=== PATIENT | female | born 1945 | race Two or more races ===

== ENCOUNTER → 2016-04-02 | Outpatient (CLI) | payer OTHER, MEDICAID ==
[~2016-04-02] MED LIST: BENA10TA53; BENA40TA2; IBUP800T24; SIMV-8; SITA50TA14
[2016-04-02 12:39] LABS: Albumin 4.3 g/dL (3.4-5.0); BUN/Creatinine Ratio 15.3; Bilirubin, Total 0.5 mg/dL (0.2-1.0); Calcium 9.5 mg/dL (8.5-10.1); Potassium 3.9 mmol/L (3.5-5.1)
[2016-04-02 13:26] LABS: Basophils # (auto) 0 uL; Basophils % (auto) 0.4 % (0.0-2.0); DEFINITIVE VIEW TRANSMISSION; Eosinophils # (auto) 0.1 uL; Eosinophils % (auto) 1.4 % (0.0-7.0); Hematocrit 42.6 % (36.0-46.0); Hemoglobin 13.4 g/dL (12.2-16.2); Lymphocytes # (auto) 1.7 uL; Lymphocytes % (auto) 24.1 % (10.0-50.0); Mean Corpuscular Hemoglobin 25.6 pg (28.0-32.0); Mean Corpuscular Hgb Conc. 31.4 g/dL (32.0-36.0); Mean Corpuscular Volume 81.7 fL (80.0-100.0); Mean Platelet Volume 9.9 fL (7.4-10.4); Monocytes # (auto) 0.7 uL; Monocytes % (auto) 9.8 % (0.0-12.0); Neutrophils # (auto) 4.6 uL; Neutrophils % (auto) 64.3 % (37.0-80.0); Platelet Count (auto) 330 10^3/uL (140-450); Red Cell Distribution Width 16.4 % (11.6-16.0); White Blood Cell 7.2 10^3/uL (4.4-10.8)
== END | disposition home or self-care (01) ==
LOC: LAB 09:25
PROVIDERS: ATTEND Internal Medicine Cardiovascular Disease
DX: I10 Essential (primary) hypertension (principal); E78.00 Pure hypercholesterolemia, unspecified; K74.1 Hepatic sclerosis; E11.9 Type 2 diabetes mellitus without complications; E03.9 Hypothyroidism, unspecified; D64.9 Anemia, unspecified; E55.9 Vitamin D deficiency, unspecified
CPT/HCPCS: 36415; 80053; 80061; 82306; 83036; 84436; 84443; 85025

== ENCOUNTER → 2016-08-12 | Outpatient (CLI) | payer OTHER, MEDICAID | END | disposition home or self-care (01) | LOC: LAB 10:03 | PROVIDERS: ATTEND Internal Medicine Cardiovascular Disease | DX: E11.9 Type 2 diabetes mellitus without complications (principal) | CPT/HCPCS: 36415; 83036 ==

== ENCOUNTER 2016-10-08 14:36 | Inpatient (IN) | payer OTHER, MEDICAID ==
[~2016-10-08] VITALS: Ht 162.6 cm; Wt 78.1 kg
[~2016-10-08 14:36] MED LIST changes: -BENA40TA2; +BENA40TA7; -IBUP800T24; +IBUP800T24 PO
[2016-10-08 16:05] LABS: Basophils # (auto) 0 uL; Basophils % (auto) 0.3 % (0.0-2.0); CONDITION Y; DEFINITIVE SEE PRINTOUT; Eosinophils # (auto) 0.1 uL; Eosinophils % (auto) 0.8 % (0.0-7.0); Hematocrit 39.9 % (36.0-46.0); Hemoglobin 12.6 g/dL (12.2-16.2); Lymphocytes # (auto) 1.9 uL; Lymphocytes % (auto) 21.4 % (10.0-50.0); Mean Corpuscular Hemoglobin 24.8 pg (28.0-32.0); Mean Corpuscular Hgb Conc. 31.5 g/dL (32.0-36.0); Mean Corpuscular Volume 78.9 fL (80.0-100.0); Mean Platelet Volume 9.5 fL (7.4-10.4); Monocytes # (auto) 0.6 uL; Monocytes % (auto) 6.7 % (0.0-12.0); Neutrophils # (auto) 6.1 uL; Neutrophils % (auto) 70.8 % (37.0-80.0); Platelet Count (auto) 309 10^3/uL (140-450); Red Cell Distribution Width 16.7 % (11.6-16.0); White Blood Cell 8.6 10^3/uL (4.4-10.8)
[2016-10-08 16:29] LABS: Albumin 3.9 g/dL (3.4-5.0); Bilirubin, Total 0.5 mg/dL (0.2-1.0); Calcium 9.1 mg/dL (8.5-10.1); Magnesium 1.7 mg/dL (1.6-2.6); Potassium 4.1 mmol/L (3.5-5.1); Total Protein 7.5 g/dL (6.4-8.2)
[2016-10-09 05:11] LABS: Urine Bilirubin Negative (Negative); Urine Blood Negative /uL (Negative); Urine Color Yellow (Yellow); Urine Glucose 4+ mg/dL (Normal); Urine Ketone Negative (Negative); Urine Mucus FEW (None Seen); Urine Nitrite Negative (Negative); Urine RBC 4 /hpf (0 - 4); Urine Squamous Epithelial Cell FEW /hpf (<5); Urine Urobilinogen Normal (Negative)
[2016-10-09] MEDS ORDERED: MORPHINE SULF INJ 2 MG/ML SYRINGE 1ML IV PRN (06:45)
[2016-10-09] MEDS ORDERED: ACETAMINOPHEN 325 MG TAB PO PRN (06:45)
[2016-10-09] MEDS ORDERED: ONDANSETRON HCL 4 MG/2 ML VIAL IV PRN (06:45)
[2016-10-09] MEDS ORDERED: ENOXAPARIN SOD 100 MG/1 ML SYRINGE SC ONE (06:45)
[2016-10-09] MEDS ORDERED: NITROGLYCERIN 0.4 MG SL TAB SL PRN (06:45)
[2016-10-09] MEDS ORDERED: DEXTROSE (50%) 50ML SYRG IV PRN (06:45)
[2016-10-09] MEDS: glipiZIDE 5 MG TAB PO SCH (07:05)
[2016-10-09] MEDS: SERTRALINE HCL 50 MG TAB PO SCH (10:02)
[2016-10-09] MEDS: LISINOPRIL 20 MG TAB PO SCH (10:02)
[2016-10-09] MEDS: FAMOTIDINE 20 MG TAB PO SCH ×2 (10:02→21:44)
[2016-10-09] MEDS: cefTRIAXone 1GM/50ML D5W 50 ML IV SCH (10:02)
[2016-10-09] MEDS: ASPirin 81 mg TAB PO SCH (10:02)
[2016-10-09] MEDS: amLODIPine BESYLATE 5 MG TAB PO SCH (10:02)
[2016-10-09] MEDS: ACCU-CHEK COMFORT CURVE STRIP VI SCH ×3 (12:46→21:47)
[2016-10-09] MEDS: InsuLIN REG 1unit/0.01ml Soln (100units/ml) SC SCH ×3 (12:50→21:50)
[2016-10-09] MEDS: GABAPENTIN 100 MG CAP PO SCH ×2 (14:38→21:44)
[2016-10-09] MEDS: ENOXAPARIN SOD 100 MG/1 ML SYRINGE SC SCH (19:41)
[2016-10-09 20:30] VITALS: BP 140/79
[2016-10-09 21:00] VITALS: BP 133/74
[2016-10-09] MEDS ORDERED: ATORVASTATIN 20 MG TAB PO SCH (22:00)
[2016-10-10] MEDS ORDERED: AMLO10TA2 PO (01:19)
[2016-10-10] MEDS ORDERED: OMEP20CA74 OR (01:20)
[2016-10-10 05:00] VITALS: BP 132/56
[2016-10-10 06:08] LABS: Basophils # (auto) 0 uL; Basophils % (auto) 0.5 % (0.0-2.0); CONDITION Y; DEFINITIVE SEE PRINTOUT; Eosinophils # (auto) 0.1 uL; Eosinophils % (auto) 1.3 % (0.0-7.0); Hematocrit 37.4 % (36.0-46.0); Hemoglobin 12.1 g/dL (12.2-16.2); Lymphocytes # (auto) 2.1 uL; Lymphocytes % (auto) 30.2 % (10.0-50.0); Mean Corpuscular Hemoglobin 25.3 pg (28.0-32.0); Mean Corpuscular Hgb Conc. 32.4 g/dL (32.0-36.0); Mean Platelet Volume 9.7 fL (7.4-10.4); Monocytes # (auto) 0.6 uL; Monocytes % (auto) 8.1 % (0.0-12.0); Neutrophils # (auto) 4.2 uL; Neutrophils % (auto) 59.9 % (37.0-80.0); Platelet Count (auto) 282 10^3/uL (140-450); Red Cell Distribution Width 16.3 % (11.6-16.0)
[2016-10-10 06:39] LABS: Albumin 3.2 g/dL (3.4-5.0); BUN/Creatinine Ratio 17.4; Bilirubin, Total 0.5 mg/dL (0.2-1.0); Calcium 8.6 mg/dL (8.5-10.1); Potassium 3.9 mmol/L (3.5-5.1); Total Protein 6.6 g/dL (6.4-8.2)
[2016-10-10] MEDS: ACCU-CHEK COMFORT CURVE STRIP VI SCH ×3 (07:00→17:52)
[2016-10-10] MEDS: glipiZIDE 5 MG TAB PO SCH (07:00)
[2016-10-10] MEDS: GABAPENTIN 100 MG CAP PO SCH ×2 (07:01→13:31)
[2016-10-10] MEDS: InsuLIN REG 1unit/0.01ml Soln (100units/ml) SC SCH ×3 (07:01→17:53)
[2016-10-10] MEDS: ENOXAPARIN SOD 100 MG/1 ML SYRINGE SC SCH (08:38)
[2016-10-10 09:00] VITALS: BP 103/77
[2016-10-10] MEDS: cefTRIAXone 1GM/50ML D5W 50 ML IV SCH (09:19)
[2016-10-10] MEDS: FAMOTIDINE 20 MG TAB PO SCH (09:20)
[2016-10-10] MEDS: ASPirin 81 mg TAB PO SCH (09:20)
[2016-10-10] MEDS: LISINOPRIL 20 MG TAB PO SCH (09:20)
[2016-10-10] MEDS: SERTRALINE HCL 50 MG TAB PO SCH (09:21)
[2016-10-10] MEDS: amLODIPine BESYLATE 5 MG TAB PO SCH (09:21)
[2016-10-10] MEDS ORDERED: ENOXAPARIN SOD 40 MG/0.4 ML SYRINGE SC SCH (10:00)
[2016-10-10] MEDS ORDERED: ADENOSINE 66 MG in GIVE UN-DILUTED 0 ML IV ONE (10:00)
[2016-10-10] MEDS ORDERED: ALBUTEROL SULF 2.5 MG/0.5ML(0.5%) NEB SOLN ONE (11:35)
[2016-10-10] MEDS ORDERED: IPRATROPIUM BROM 0.5 MG/2.5ML INH SOL ONE (11:35)
[2016-10-10 18:18] VITALS: BP 134/74
== END 2016-10-10 19:03 | disposition home health service (06) | DRG 300 ==
LOC: EDBD 14:36 → ER 14:36 → TELE 14:37 → TELE-WESTW 10-09 20:15
PROVIDERS: ADMIT Nurse Practitioner; ATTEND Internal Medicine
PROC: 4A02X4Z Measurement of Cardiac Electrical Activity, External Approach (ICD-10-PCS; principal; 2016-10-10)
DX: I82.402 Acute embolism and thrombosis of unspecified deep veins of left lower extremity (principal); N39.0 Urinary tract infection, site not specified; R00.2 Palpitations; E11.9 Type 2 diabetes mellitus without complications; I10 Essential (primary) hypertension; E78.5 Hyperlipidemia, unspecified; R94.31 Abnormal electrocardiogram [ECG] [EKG]; Z88.5 Allergy status to narcotic agent; Z91.041 Radiographic dye allergy status; Z79.84 Long term (current) use of oral hypoglycemic drugs; Z79.899 Other long term (current) drug therapy; I69.30 Unspecified sequelae of cerebral infarction; I69.398 Other sequelae of cerebral infarction
CPT/HCPCS: 36415; 70450; 71020; 78452; 80053; 81001; 82962; 83735; 84484; 85025; 85379; 87086; 93005; 93017; 93306; 93970; 96372; J0153; J0696; J1815